=== PATIENT | male | born 1940 | race Caucasian/White ===

== ENCOUNTER 2017-06-20 20:17 | Inpatient (IN) ==
[2017-06-20] MEDS ORDERED: MORPHINE 2 MG/1 ML SYRINGE IV STA (21:37)
[2017-06-20] MEDS ORDERED: ALUM/MAG/SIMETH/LIDO VISC 1:1 30 ML BOTTLE PO STA (21:37)
[2017-06-20] MEDS ORDERED: NITROGLYCERIN 2% OINT 1 INCH/GM PACK TOP STA (21:37)
[2017-06-20] MEDS ORDERED: ONDANSETRON 4 MG/2 ML VIAL IV STA (21:37)
[2017-06-20 22:15] LABS: Basophils # 0.1 10*3/uL (0.0-0.2); Basophils % 0.4 % (0.0-0.8); Eosinophils # 0.1 10*3/uL (0.0-0.87); Eosinophils % 0.9 % (0.00-10.9); Hematocrit 33.2 VOL% (42.0-52.0); Hemoglobin 10.8 GM/DL (14.0-18.0); Immature Granulocytes % 3.9 %; Immature Granulocytes Absolute 0.45 #; Lymphocytes # 1.5 10*3/uL (1.4-4.0); Lymphocytes % 12.8 % (21.2-54.2); Mean Corpuscular HGB Conc 32.5 GM/DL (32-36); Mean Corpuscular Hemoglobin 32 PG (27-34); Mean Corpuscular Volume 99.7 FL (87-102); Mean Platelet Volume 10.5 FL (9.6-12.0); Monocytes # 0.7 10*3/uL (0.11-0.8); Monocytes % 5.9 % (1.7-12.7); Neutrophils # 8.7 10*3/uL (1.4-7.4); Neutrophils % 76.1 % (38.7-73.9); Platelet Count 210 T/CUMM (130-400); Red Blood Count 3.33 MC/CUMM (3.8-5.5); Red Cell Distribution Width 15.1 % (9.3-17.3); White Blood Count 11.5 T/CUMM (4-12)
[2017-06-20 22:25] LABS: PT Patient Result 10.8 SECS
[2017-06-20 22:36] LABS: Bilirubin,Total 0.7 MG/DL (0.2-1.0); Calcium 8.6 MG/DL (8.5-10.1); Osmolality,Calculated 290.7 MOS/KG (273-304); Potassium 3.8 MMOL/L (3.5-5.1); Total Protein 6.2 G/DL (6.4-8.3)
[2017-06-20] MEDS ORDERED: ONDANSETRON 4 MG/2 ML VIAL ONE (22:39)
[2017-06-20] MEDS ORDERED: NITROGLYCERIN 2% OINT 1 INCH/GM PACK TOP ONE (22:39)
[2017-06-20] MEDS ORDERED: ALUM/MAG/SIMETH/LIDO VISC 1:1 30 ML BOTTLE PO ONE (22:39)
[2017-06-20] MEDS ORDERED: ONDANSETRON 4 MG/2 ML VIAL IV PRN (23:03)
[2017-06-20] MEDS ORDERED: ALBUTEROL 2.5 MG/3 ML NEB RESP TX PRN (23:12)
[2017-06-20 23:24] LABS: Apearance,Urine CLEAR (Clear); Bilirubin,Urine Negative (Negative); Blood, Urine Small mg/dL (Negative); Glucose,Urine (UA) Negative (Negative); Ketones,Urine Negative (Negative); Nitrite,Urine Negative (Negative); Protein,Urine Negative; RBC,Urine <1 /HPF (0-4); Urine Color Yellow (Yellow); Urine Urobilinogen < 2.0 EU/DL (0.2-1.0); WBC,Urine 1 /HPF (0-6)
[2017-06-20 23:43] LABS: Anisocytosis 1+; Poikilocytosis 1+
[2017-06-21] MEDS: SODIUM CHLORIDE 0.9% 1,000 ML IV SCH ×2 (00:29→20:57)
[2017-06-21] MEDS: ALBUTEROL/IPRATROPIUM 3 ML NEB RESP TX SCH ×4 (01:00→21:00)
[2017-06-21] MEDS: CARVEDILOL 12.5 MG TABLET PO SCH ×3 (01:08→20:51)
[2017-06-21 05:43] LABS: Basophils # 0.1 10*3/uL (0.0-0.2); Basophils % 0.7 % (0.0-0.8); Eosinophils # 0.1 10*3/uL (0.0-0.87); Eosinophils % 0.9 % (0.00-10.9); Hematocrit 32.4 VOL% (42.0-52.0); Hemoglobin 10.7 GM/DL (14.0-18.0); Immature Granulocytes % 4.1 %; Immature Granulocytes Absolute 0.36 #; Lymphocytes # 1.6 10*3/uL (1.4-4.0); Lymphocytes % 18.1 % (21.2-54.2); Mean Corpuscular Hemoglobin 33 PG (27-34); Mean Corpuscular Volume 99.4 FL (87-102); Mean Platelet Volume 10.7 FL (9.6-12.0); Monocytes # 0.6 10*3/uL (0.11-0.8); Monocytes % 7.1 % (1.7-12.7); Neutrophils # 6.1 10*3/uL (1.4-7.4); Neutrophils % 69.1 % (38.7-73.9); Platelet Count 210 T/CUMM (130-400); Red Blood Count 3.26 MC/CUMM (3.8-5.5); White Blood Count 8.8 T/CUMM (4-12)
[2017-06-21 06:13] LABS: Giant Platelets Few; Hypochromasia 1+; Ovalocytes Slight; Platelet Estimate Adequate
[2017-06-21 06:19] LABS: Albumin 2.9 G/DL (3.4-5.0); Bilirubin,Total 0.8 MG/DL (0.2-1.0); Calcium 8.8 MG/DL (8.5-10.1); Osmolality,Calculated 290.5 MOS/KG (273-304); Potassium 4.1 MMOL/L (3.5-5.1); Total Protein 6.1 G/DL (6.4-8.3)
[2017-06-21] MEDS: LEVOTHYROXINE 50 MCG TABLET PO SCH (07:22)
[2017-06-21] MEDS: MAGNESIUM OXIDE 400 MG TABLET PO SCH (09:17)
[2017-06-21] MEDS: ALLOPURINOL 300 MG TABLET PO SCH (09:17)
[2017-06-21] MEDS: ISOSORBIDE MONONITRATE 30 MG TABLET PO SCH (09:18)
[2017-06-21] MEDS: amLODIPine 5 MG TABLET PO SCH (09:18)
[2017-06-21] MEDS: PANTOPRAZOLE 40 MG TABLET PO SCH (09:18)
[2017-06-21] MEDS: hydroCHLOROthiazide 25 MG TABLET PO SCH (09:18)
[2017-06-21] MEDS: ASPIRIN EC 81 MG TABLET PO SCH (09:18)
[2017-06-21] MEDS: CLOPIDOGREL 75 MG TABLET PO SCH (09:19)
[2017-06-21] MEDS ORDERED: DOXYCYCLINE HYCLATE 100 MG CAPSULE PO SCH (11:00)
[2017-06-21] MEDS ORDERED: AMINOPHYLLINE 250 MG in SODIUM CHLORIDE 0.9% 100 ML IV ONE (12:00)
[2017-06-21] MEDS: MONTELUKAST 10 MG TABLET PO SCH (12:03)
[2017-06-21] MEDS: methylPREDNISolone SOD SUC 40 MG/1 ML VIAL IV SCH ×2 (12:04→20:51)
[2017-06-21] MEDS ORDERED: SODIUM CHLORIDE 0.9% IV SCH (16:30)
[2017-06-21] MEDS ORDERED: AMINOPHYLLINE IV SCH (16:30)
[2017-06-21] MEDS: ATORVASTATIN 20 MG TABLET PO SCH (20:50)
[2017-06-21] MEDS: PARoxetine 20 MG TABLET PO SCH (20:50)
[2017-06-22] MEDS: ALBUTEROL/IPRATROPIUM 3 ML NEB RESP TX SCH ×4 (01:16→19:36)
[2017-06-22] MEDS ORDERED: KETOROLAC 15 MG/1 ML VIAL IV ONE (01:30)
[2017-06-22] MEDS: ACETAMINOPHEN 325 MG TABLET PO PRN ×2 (02:46→10:53)
[2017-06-22] MEDS: LEVOTHYROXINE 50 MCG TABLET PO SCH (05:17)
[2017-06-22] MEDS: methylPREDNISolone SOD SUC 40 MG/1 ML VIAL IV SCH ×3 (05:17→22:16)
[2017-06-22 07:01] LABS: Calcium 8.4 MG/DL (8.5-10.1); Osmolality,Calculated 293.4 MOS/KG (273-304); Potassium 4.1 MMOL/L (3.5-5.1)
[2017-06-22] MEDS: ISOSORBIDE MONONITRATE 30 MG TABLET PO SCH (08:53)
[2017-06-22] MEDS: ASPIRIN EC 81 MG TABLET PO SCH (08:54)
[2017-06-22] MEDS: hydroCHLOROthiazide 25 MG TABLET PO SCH (08:54)
[2017-06-22] MEDS: ALLOPURINOL 300 MG TABLET PO SCH (08:54)
[2017-06-22] MEDS: amLODIPine 5 MG TABLET PO SCH (08:54)
[2017-06-22] MEDS: MAGNESIUM OXIDE 400 MG TABLET PO SCH (08:54)
[2017-06-22] MEDS: PANTOPRAZOLE 40 MG TABLET PO SCH (08:54)
[2017-06-22] MEDS: MONTELUKAST 10 MG TABLET PO SCH (08:54)
[2017-06-22] MEDS: CARVEDILOL 12.5 MG TABLET PO SCH ×2 (08:55→22:35)
[2017-06-22] MEDS: CLOPIDOGREL 75 MG TABLET PO SCH (08:55)
[2017-06-22] MEDS ORDERED: AMINOPHYLLINE IV SCH (15:00)
[2017-06-22] MEDS ORDERED: SODIUM CHLORIDE 0.9% IV SCH (15:00)
[2017-06-22] MEDS: SODIUM CHLORIDE 0.9% 1,000 ML IV SCH (16:38)
[2017-06-22] MEDS: PARoxetine 20 MG TABLET PO SCH (22:35)
[2017-06-22] MEDS: ATORVASTATIN 20 MG TABLET PO SCH (22:35)
[2017-06-23] MEDS: ALBUTEROL/IPRATROPIUM 3 ML NEB RESP TX SCH ×3 (01:31→13:31)
[2017-06-23] MEDS: ACETAMINOPHEN 325 MG TABLET PO PRN (03:46)
[2017-06-23] MEDS: methylPREDNISolone SOD SUC 40 MG/1 ML VIAL IV SCH ×2 (05:32→12:10)
[2017-06-23] MEDS: LEVOTHYROXINE 50 MCG TABLET PO SCH (05:32)
[2017-06-23 08:06] LABS: Calcium 8.3 MG/DL (8.5-10.1); Osmolality,Calculated 292.5 MOS/KG (273-304); Potassium 3.7 MMOL/L (3.5-5.1)
[2017-06-23] MEDS: hydroCHLOROthiazide 25 MG TABLET PO SCH (08:59)
[2017-06-23] MEDS: MAGNESIUM OXIDE 400 MG TABLET PO SCH (08:59)
[2017-06-23] MEDS: CLOPIDOGREL 75 MG TABLET PO SCH (09:00)
[2017-06-23] MEDS: MONTELUKAST 10 MG TABLET PO SCH (09:00)
[2017-06-23] MEDS: PANTOPRAZOLE 40 MG TABLET PO SCH (09:00)
[2017-06-23] MEDS: ALLOPURINOL 300 MG TABLET PO SCH (09:00)
[2017-06-23] MEDS: ASPIRIN EC 81 MG TABLET PO SCH (09:00)
[2017-06-23] MEDS: ISOSORBIDE MONONITRATE 30 MG TABLET PO SCH (09:00)
[2017-06-23] MEDS: amLODIPine 5 MG TABLET PO SCH (09:00)
[2017-06-23] MEDS: CARVEDILOL 12.5 MG TABLET PO SCH (09:00)
[2017-06-23] MEDS ORDERED: THEOPHYLLINE ER 200 MG TABLET PO SCH (11:00)
[2017-06-23] MEDS: SODIUM CHLORIDE 0.9% 1,000 ML IV SCH (12:05)
[2017-06-23] MEDS: cephALEXin 500 MG CAPSULE PO SCH ×2 (12:10→15:59)
[2017-06-23] MEDS: THEOPHYLLINE ER (24 HR) 200 MG CAPSULE PO SCH ×2 (12:43→15:59)
[2017-06-23 16:41] VITALS: BP 131/61
[2017-06-23] MEDS ORDERED: BUDESONIDE/FORMOTEROL 80-4.5 INHALER 6.9 GM INH SCH (21:00)
== END 2017-06-23 16:53 | disposition home or self-care (01) | DRG 192 ==
LOC: EDBD → EDUNIT# → N.ED 20:17 → N.EDINP 20:17 → N.2E 23:37 → SUATTDRO 06-21 10:25
PROVIDERS: ADMIT Internal Medicine; ATTEND Hospitalist